=== PATIENT | male | born 1960 | race American Indian/Alaskan Native ===

== ENCOUNTER 2019-10-15 00:06 | Emergency (ER) | payer MEDICAID ==
[2019-10-15 00:36] VITALS: BP 212/81
[2019-10-15] MEDS ORDERED: ASPIRIN 325 MG TAB PO ONE (02:10)
--- NOTE | 2019-10-15 02:46 | XRay Report ---
CHEST 1 VIEW 10/15/2019 2:33 AM INDICATION / CLINICAL INFORMATION: Chest pain for 3 days. COMPARISON: One view of the chest from 08/17/2015. FINDINGS: SUPPORT DEVICES: None. HEART / MEDIASTINUM: The heart is similarly mildly enlarged with sternotomy changes. LUNGS / PLEURA: No significant pulmonary or pleural abnormality. No pneumothorax. ADDITIONAL FINDINGS: No significant additional findings. IMPRESSION: No acute abnormality of the chest. Signer Name: Julien Brown MD Signed: 10/15/2019 2:41 AM Workstation Name: [id number]
[2019-10-15 03:08] LABS: Basophils % (Auto) 0.5 % (0.0-1.8); Eosinophils # (Auto) 0.1 K/mm3 (0.0-0.4); Eosinophils % (Auto) 0.7 % (0.0-4.3); Hematocrit 44.7 % (35.5-45.6); Lymphocytes # (Auto) 2.1 K/mm3 (1.2-5.4); Lymphocytes % (Auto) 30.4 % (13.4-35.0); Mean Corpuscular HGB Conc 34 % (32-34); Mean Corpuscular Volume 86 fl (84-94); Monocytes # (Auto) 0.4 K/mm3 (0.0-0.8); Monocytes % (Auto) 5.6 % (0.0-7.3); Platelet Count 184 K/mm3 (140-440); Red Blood Count 5.17 M/mm3 (3.65-5.03); Red Cell Distribution Width 14.1 % (13.2-15.2)
[2019-10-15 03:30] LABS: BUN/Creatinine Ratio 9; Blood Urea Nitrogen 7 mg/dL (9-20); Calcium 9.2 mg/dL (8.4-10.2); Hemolysis Index 8
== END 2019-10-15 04:00 | disposition left against medical advice (07) ==
LOC: ED 00:06
DX: Z53.21 Procedure and treatment not carried out due to patient leaving prior to being seen by health care provider (principal)
CPT/HCPCS: 36415; 71045; 80048; 84484; 85025; 93005; 93010

== ENCOUNTER 2019-10-17 13:22 | Inpatient (IN) | payer MEDICAID ==
--- NOTE | 2019-10-17 13:46 | Emergency Department Report ---
Blank Doc - Documentation Documentation: 59-year-old male that presents with CP and SOB. This initial assessment/diagnostic orders/clinical plan/treatment(s) is/are subject to change based on patient's health status, clinical progression and re- assessment by fellow clinical providers in the ED. Further treatment and workup at subsequent clinical providers discretion. Patient/guardians urged not to elope from the ED as their condition may be serious if not clinically assessed and managed. Initial orders include: 1- Patient sent to MAIN ED for further evaluation and treatment 2- labs 3- EKG 4- CXR
[2019-10-17 14:24] LABS: Basophils % (Auto) 0.9 % (0.0-1.8); Eosinophils % (Auto) 0.8 % (0.0-4.3); Hematocrit 40.9 % (35.5-45.6); Hemoglobin 13.7 gm/dl (11.8-15.2); Lymphocytes # (Auto) 1.3 K/mm3 (1.2-5.4); Lymphocytes % (Auto) 34.2 % (13.4-35.0); Mean Corpuscular HGB Conc 34 % (32-34); Mean Corpuscular Volume 87 fl (84-94); Monocytes # (Auto) 0.2 K/mm3 (0.0-0.8); Monocytes % (Auto) 6.2 % (0.0-7.3); Platelet Count 156 K/mm3 (140-440); Red Blood Count 4.73 M/mm3 (3.65-5.03); Red Cell Distribution Width 14.3 % (13.2-15.2)
[2019-10-17 14:34] LABS: INR 1.05 (0.87-1.13); Partial Thromboplastin Time 30.2 Sec. (24.2-36.6)
--- NOTE | 2019-10-17 14:38 | XRay Report ---
CHEST 2 VIEWS INDICATION: Chest Pain. COMPARISON: 10/15/2019 FINDINGS: Support devices: None. Heart: Stable moderate cardiomegaly status post previous median sternotomy. Lungs/Pleura: No acute air space or interstitial disease. No significant pleural effusion. IMPRESSION: No acute findings. Signer Name: Sam Gayle MD Signed: 10/17/2019 2:33 PM Workstation Name: [id number]
[2019-10-17 14:46] LABS: Alanine Aminotransferase 20 units/L (7-56); Albumin 3.8 g/dL (3.9-5); BUN/Creatinine Ratio 13; Blood Urea Nitrogen 12 mg/dL (9-20); Calcium 8.5 mg/dL (8.4-10.2); Hemolysis Index 9
--- NOTE | 2019-10-17 17:04 | Emergency Department Report ---
<PEGGY LINCOLN - Last Filed: 10/17/19 17:31> ED General Adult HPI - General Chief complaint: Chest Pain Stated complaint: CHEST PAIN/RT ARM PAIN Time Seen by Provider: 10/17/19 13:45 Source: patient Mode of arrival: Ambulatory Limitations: No Limitations - History of Present Illness Initial comments: 59-year old -[place] male with a extensive history of coronary stent x6 replacement CABG, hypertension presents to the emergency room complaining of chest pain that radiates down his right arm. Patient states he has been out of his medications for 1 week. Patient also reports shortness of breath. When review of patient's medications it shows that patient has plenty of refills and patient was not aware that he had refills of his medications. Patient reports his primary care provider is at [facility]. Patient was able to walk from his room to the waiting area without any difficulties in breathing. Onset/Timin -: days(s) Location: chest - Related Data Home Medications Medication Instructions Recorded Confirmed Last Taken AtorvaSTATin [Lipitor] 80 mg PO QHS 10/17/19 10/17/19 Unknown ISOSORBIDE MONOnitrate [Imdur ER] 60 mg PO QDAY 10/17/19 10/17/19 Unknown Lisinopril [Zestril] 5 mg PO QDAY 10/17/19 10/17/19 Unknown Metformin HCl [metFORMIN ER 1,000 mg PO TID 10/17/19 10/17/19 Unknown Gastric] Metoprolol Xl [Metoprolol 25 mg PO QDAY 10/17/19 10/17/19 Unknown SUCCINATE ER TAB] Previous Rx's Medication Instructions Recorded Last Taken Type Aspirin EC 325 mg PO QDAY #30 tablet 08/17/15 Unknown Rx Clopidogrel [Plavix] 75 mg PO QDAY #30 tablet 08/17/15 Unknown Rx Allergies Allergy/AdvReac Type Severity Reaction Status Date / Time No Known Allergies Allergy Verified 08/17/15 00:27 ED Past Medical Hx - Past Medical History Previous Medical History?: Yes Hx Hypertension: Yes - Surgical History Past Surgical History?: Yes Hx Coronary Stent: Yes (x6) Hx Open Heart Surgery: Yes - Social History Smoking Status: Never Smoker Substance Use Type: None - Medications Home Medications: Home Medications Medication Instructions Recorded Confirmed Last Taken Type Aspirin EC 325 mg PO QDAY #30 tablet 08/17/15 10/17/19 Unknown Rx Clopidogrel [Plavix] 75 mg PO QDAY #30 tablet 08/17/15 10/17/19 Unknown Rx AtorvaSTATin [Lipitor] 80 mg PO QHS 10/17/19 10/17/19 Unknown History ISOSORBIDE MONOnitrate [Imdur ER] 60 mg PO QDAY 10/17/19 10/17/19 Unknown History Lisinopril [Zestril] 5 mg PO QDAY 10/17/19 10/17/19 Unknown History Metformin HCl [metFORMIN ER 1,000 mg PO TID 10/17/19 10/17/19 Unknown History Gastric] Metoprolol Xl [Metoprolol 25 mg PO QDAY 10/17/19 10/17/19 Unknown History SUCCINATE ER TAB] ED Physical Exam - General Limitations: No Limitations General appearance: alert, in no apparent distress - Head Head exam: Present: atraumatic, normocephalic - Eye Eye exam: Present: normal appearance - ENT ENT exam: Present: mucous membranes moist - Neck Neck exam: Present: normal inspection, full ROM - Respiratory Respiratory exam: Present: normal lung sounds bilaterally. Absent: respiratory distress - Cardiovascular Cardiovascular Exam: Present: regular rate, normal rhythm. Absent: systolic murmur, diastolic murmur, rubs, gallop - GI/Abdominal GI/Abdominal exam: Present: soft, normal bowel sounds - Extremities Exam Extremities exam: Present: normal inspection. Absent: pedal edema - Neurological Exam Neurological exam: Present: alert, oriented X3, normal gait - Psychiatric Psychiatric exam: Present: normal affect, normal mood - Skin Skin exam: Present: warm, dry, intact, normal color. Absent: rash ED Medical Decision Making - Lab Data Result diagrams: 10/17/19 13:58 10/17/19 13:58 - Medical Decision Making 59-year old -[place] male with a extensive history of coronary stent x6 replacement CABG, hypertension presents to the emergency room complaining of chest pain that radiates down his right arm. Patient states he has been out of his medications for 1 week. Patient also reports shortness of breath. When review of patient's medications it shows that patient has plenty of refills and patient was not aware that he had refills of his medications. Patient reports his primary care provider is at [facility]. Patient was able to walk from his room to the waiting area without any difficulties in breathing. Chest pain protocol has been initiated from triage. ED Disposition Clinical Impression: Unstable angina Disposition: DC-09 OP ADMIT IP TO THIS HOSP Condition: Stable Instructions: Angina (ED) Referrals: PRIMARY CARE, [Primary Care Provider] - 3-5 Days <TABATHARICK - Last Filed: 10/17/19 19:37> ED General Adult HPI - History of Present Illness Initial comments: Patient additionally adds that he has had worsening of his chest pain over the past week with shortness of breath with exertion. ED Review of Systems ROS: Stated complaint: CHEST PAIN/RT ARM PAIN Other details as noted in HPI Comment: All other systems reviewed and negative ED Course Vital Signs 10/17/19 10/17/19 10/17/19 13:48 19:19 19:26 Temperature 98.3 F 97.8 F Pulse Rate 67 68 Respiratory 18 17 16 Rate Blood Pressure 195/77 184/66 O2 Sat by Pulse 98 92 Oximetry ED Medical Decision Making - Lab Data Result diagrams: 10/17/19 13:58 10/17/19 13:58 Lab Results 10/17/19 10/17/19 10/17/19 Range/Units 13:58 13:58 13:58 WBC 3.9 L (4.5-11.0) K/mm3 RBC 4.73 (3.65-5.03) M/mm3 Hgb 13.7 (11.8-15.2) gm/dl Hct 40.9 (35.5-45.6) % MCV 87 (84-94) fl MCH 29 (28-32) pg MCHC 34 (32-34) % RDW 14.3 (13.2-15.2) % Plt Count 156 (140-440) K/mm3 Lymph % (Auto) 34.2 (13.4-35.0) % Ogle % (Auto) 6.2 (0.0-7.3) % Eos % (Auto) 0.8 (0.0-4.3) % Baso % (Auto) 0.9 (0.0-1.8) % Lymph # 1.3 (1.2-5.4) K/mm3 Ogle # 0.2 (0.0-0.8) K/mm3 Eos # 0.0 (0.0-0.4) K/mm3 Baso # 0.0 (0.0-0.1) K/mm3 Seg Neutrophils % 57.9 (40.0-70.0) % Seg Neutrophils # 2.3 (1.8-7.7) K/mm3 PT 13.8 (12.2-14.9) Sec. INR 1.05 (0.87-1.13) APTT 30.2 (24.2-36.6) Sec. Sodium 140 (137-145) mmol/L Potassium 3.9 (3.6-5.0) mmol/L Chloride 105.8 (98-107) mmol/L Carbon Dioxide 19 L (22-30) mmol/L Anion Gap 19 mmol/L BUN 12 (9-20) mg/dL Creatinine 0.9 (0.8-1.5) mg/dL Estimated GFR > 60 ml/min BUN/Creatinine Ratio 13 % Glucose 156 H (75-100) mg/dL Calcium 8.5 (8.4-10.2) mg/dL Total Bilirubin 0.40 (0.1-1.2) mg/dL AST 18 (5-40) units/L ALT 20 (7-56) units/L Alkaline Phosphatase 117 (35-129) units/L Troponin T 0.010 (0.00-0.029) ng/mL Total Protein 7.1 (6.3-8.2) g/dL Albumin 3.8 L (3.9-5) g/dL Albumin/Globulin Ratio 1.2 % 02/10/20 Range/Units 18:19 WBC (4.5-11.0) K/mm3 RBC (3.65-5.03) M/mm3 Hgb (11.8-15.2) gm/dl Hct (35.5-45.6) % MCV (84-94) fl MCH (28-32) pg MCHC (32-34) % RDW (13.2-15.2) % Plt Count (140-440) K/mm3 Lymph % (Auto) (13.4-35.0) % Ogle % (Auto) (0.0-7.3) % Eos % (Auto) (0.0-4.3) % Baso % (Auto) (0.0-1.8) % Lymph # (1.2-5.4) K/mm3 Ogle # (0.0-0.8) K/mm3 Eos # (0.0-0.4) K/mm3 Baso # (0.0-0.1) K/mm3 Seg Neutrophils % (40.0-70.0) % Seg Neutrophils # (1.8-7.7) K/mm3 PT (12.2-14.9) Sec. INR (0.87-1.13) APTT (24.2-36.6) Sec. Sodium (137-145) mmol/L Potassium (3.6-5.0) mmol/L Chloride (98-107) mmol/L Carbon Dioxide (22-30) mmol/L Anion Gap mmol/L BUN (9-20) mg/dL Creatinine (0.8-1.5) mg/dL Estimated GFR ml/min BUN/Creatinine Ratio % Glucose (75-100) mg/dL Calcium (8.4-10.2) mg/dL Total Bilirubin (0.1-1.2) mg/dL AST (5-40) units/L ALT (7-56) units/L Alkaline Phosphatase (35-129) units/L Troponin T 0.014 (0.00-0.029) ng/mL Total Protein (6.3-8.2) g/dL Albumin (3.9-5) g/dL Albumin/Globulin Ratio % - EKG Data -: EKG Interpreted by Vt - EKG Data 10/17/19 19:32 EKG shows sinus rhythm rate of 66 [place] is rightward intervals otherwise normal there are no ST segment elevations however there is [address] depression in leads I. There is lateral T wave inversions as well. 10/17/19 19:35 EKG appears to be unchanged from 2015 - Radiology Data Ordering Physician: MARY MANE NP Date of Service: 10/17/19 Procedure(s): XR chest routine 2V Accession Number(s): [id number] cc: MARY MANE NP Fluoro Time In Minutes: CHEST 2 VIEWS INDICATION: Chest Pain. COMPARISON: 10/15/2019 FINDINGS: Support devices: None. Heart: Stable moderate cardiomegaly status post previous median sternotomy. Lungs/Pleura: No acute air space or interstitial disease. No significant pleural effusion. IMPRESSION: No acute findings. Signer Name: Sam Gayle MD Signed: 10/17/2019 2:33 PM Workstation Name: [id number] Transcribed By: ES Dictated By: Sam Gayle MD Electronically Authenticated By: Sam Gayle MD Signed Date/Time: 10/17/19 1433 - Medical Decision Making At this time the patient is stating that he is having chest pain at rest. Patient states that he is very uncomfortable and has 8 out of 10 discomfort. Patient will be given aspirin and nitroglycerin. Patient also to be admitted to the hospitalist service for obvious to continue her cardiac risk stratification. Critical care attestation.: If time is entered above; I have spent that time in minutes in the direct care of this critically ill patient, excluding procedure time. ED Disposition Is pt being admited?: Yes Does the pt Need Aspirin: No Time of Disposition: 19:37 Heart Score - HEART Score History: Moderately suspicious EKG: Non-specific Age: 45-65 Risk factors: > 3 risk factors or hx of atherosclerotic disease Troponin: < normal limit HEART Score: 5
[2019-10-17] MEDS ORDERED: NITROGLYCERIN 0.4 MG TAB SUBL SL PRN (19:30)
[2019-10-17] MEDS ORDERED: ASPIRIN 325 MG TAB PO ONE (19:30)
[2019-10-17] MEDS ORDERED: HYDROcodone/ACETAMINOPHEN 5-325 MG TAB PO ONE (19:30)
[2019-10-17] MEDS ORDERED: ONDANSETRON 4 MG/2 ML INJ IV PRN (23:31)
[2019-10-17] MEDS ORDERED: ACETAMINOPHEN 325 MG TAB PO PRN (23:31)
--- NOTE | 2019-10-17 23:31 | History and Physical Report ---
History of Present Illness Date of admission: 10/17/19 19:38 History of present illness: 59-year-old man with a history of hypertension, diabetes, coronary artery disease comes emergency room with complaints of chest pain. Patient states that his symptoms started 5 days ago, pain is in the epigastric area and he feels as if someone is stepping on his chest, constant, intensity 5/10, no radiation but complains of right arm pain. He states that he ran out of his nitroglycerin, did not take any. Denies nausea vomiting, shortness of breath, diaphoresis and palpitation. He states he had a stress test done at [facility] last year. Patient is being admitted for chest pain Review Of Systems: Constitutional: no weight loss, fever, chills Ears, eyes, nose, mouth and throat: no nasal congestion, no nasal discharge, no sinus pressure, blurry vision, diplopia Neck: No neck pain or rigidity. Cardiovascular: No palpitations Respiratory: No shortness of breath, cough Gastrointestinal: No hematochezia Genitourinary : no dysuria, frequency Musculoskeletal: no muscle ache , joint pain Integumentary: no rash, no pruritis Neurological: no parathesias, focal weakness Endocrine: no cold or heat intolerance, no polyuria or polydipsia Hematologic/Lymphatic: no easy bruising, no easy bleeding, no gland swelling Allergic/Immunologic: no urticaria, no angioedema. PAST MEDICAL HISTORY: hypertension, diabetes, coronary artery disease PAST SURGICAL HISTORY: CABG SOCIAL HISTORY: Denies alcohol, tobacco, drugs FAMILY HISTORY: Hypertension Medications and Allergies Allergies Allergy/AdvReac Type Severity Reaction Status Date / Time No Known Allergies Allergy Verified 08/17/15 00:27 Home Medications Medication Instructions Recorded Confirmed Last Taken Type Aspirin EC 325 mg PO QDAY #30 tablet 08/17/15 10/17/19 Unknown Rx Clopidogrel [Plavix] 75 mg PO QDAY #30 tablet 08/17/15 10/17/19 Unknown Rx AtorvaSTATin [Lipitor] 80 mg PO QHS 10/17/19 10/17/19 Unknown History ISOSORBIDE MONOnitrate [Imdur ER] 60 mg PO QDAY 10/17/19 10/17/19 Unknown History Lisinopril [Zestril] 5 mg PO QDAY 10/17/19 10/17/19 Unknown History Metformin HCl [metFORMIN ER 1,000 mg PO TID 10/17/19 10/17/19 Unknown History Gastric] Metoprolol Xl [Metoprolol 25 mg PO QDAY 10/17/19 10/17/19 Unknown History SUCCINATE ER TAB] Active Meds: Active Medications Morphine Sulfate (Morphine) 2 mg IV Q4H PRN PRN Reason: Pain, Moderate (4-6) Nitroglycerin (Nitrostat) 0.4 mg SL .Q5MIN PRN PRN Reason: Chest Pain Exam - Physical Exam Narrative exam: Gen. appearance: Patient lying in bed, no apparent distress HEENT: Normocephalic, atraumatic, pupils equally round and reactive to light, extraocular movement intact, and no sclericterus,. No JVD or thyromegaly or nodule,neck supple, no carotid bruit ,mucous membranes moist, no exudate or erythema Heart: S1, S2, regular rate and rhythm Lungs: Clear bilaterally, breathing comfortable Abdomen: Positive bowel sounds, nontender, nondistended, no organomegaly Extremity: no edema, cyanosis, clubbing Skin: No rash, nodules, warm, dry Neuro: speech is fluent, cranial nerves II to XII intact, motor, sensory intact - Constitutional Vitals: Temp Pulse Resp BP Pulse Ox 97.8 F 68 20 184/66 92 10/17/19 19:19 10/17/19 19:19 10/17/19 20:58 10/17/19 19:19 10/17/19 19:19 Results - Labs CBC & Chem 7: 10/18/19 03:48 10/18/19 03:48 Labs: Abnormal lab results 10/17/19 10/17/19 Range/Units 13:58 13:58 WBC 3.9 L (4.5-11.0) K/mm3 Carbon Dioxide 19 L (22-30) mmol/L Glucose 156 H (75-100) mg/dL Albumin 3.8 L (3.9-5) g/dL - Imaging and Cardiology EKG: image reviewed Chest x-ray: report reviewed Assessment and Plan Assessment Chest pain/Coronary artery disease Check cardiac enzymes, consult cardiology Patient had a recent stress test done 1 year ago Start aspirin,plavix, IV morphine, outpatient cardiac medications Diabetes Check fingersticks and start insulin sliding scale Hypertension add IV hydralazine, uncontrolled table continue outpatient medications DVT prophylaxis
[2019-10-18 00:44] LABS: Creatine Kinase MB 5.6 ng/mL (0.0-4.0)
[2019-10-18] MEDS: MORPHINE 2 MG/1 ML INJ IV PRN ×4 (02:01→21:50)
[2019-10-18 04:58] LABS: Basophils % (Auto) 0.5 % (0.0-1.8); Eosinophils # (Auto) 0.1 K/mm3 (0.0-0.4); Eosinophils % (Auto) 1.5 % (0.0-4.3); Hematocrit 39.4 % (35.5-45.6); Hemoglobin 13.4 gm/dl (11.8-15.2); Lymphocytes # (Auto) 2.3 K/mm3 (1.2-5.4); Lymphocytes % (Auto) 47.6 % (13.4-35.0); Mean Corpuscular HGB Conc 34 % (32-34); Mean Corpuscular Volume 85 fl (84-94); Monocytes # (Auto) 0.3 K/mm3 (0.0-0.8); Monocytes % (Auto) 6.6 % (0.0-7.3); Platelet Count 158 K/mm3 (140-440); Red Blood Count 4.62 M/mm3 (3.65-5.03); Red Cell Distribution Width 14.3 % (13.2-15.2)
[2019-10-18 05:20] LABS: BUN/Creatinine Ratio 15; Blood Urea Nitrogen 12 mg/dL (9-20); Calcium 8.4 mg/dL (8.4-10.2); Hemolysis Index 6
[2019-10-18 05:23] LABS: Creatine Kinase MB 5.2 ng/mL (0.0-4.0)
[2019-10-18] MEDS: ASPIRIN EC 325 MG TAB PO SCH (10:18)
[2019-10-18] MEDS: LISINOPRIL 5 MG TAB PO SCH (10:18)
[2019-10-18] MEDS: CLOPIDOGREL 75 MG TAB PO SCH (10:18)
[2019-10-18] MEDS: METOPROLOL SUCCINATE XL 25 MG TAB PO SCH (10:19)
--- NOTE | 2019-10-18 11:12 | Consultation ---
History of Present Illness Consult date: 10/18/19 Consult reason: chest pain History of present illness: This is a 59-year old male with a history of coronary artery disease with remote 3 vessel bypass grafting. Patient reports his latest cardiac workup was done at [facility] less than six months ago. Records are not available for review. Patient presented with complaints of chest pain, intermittent for several days. Noted a systolic blood pressure greater than 190 on presentation. Admits he ran out of his medications a week ago. He denies unusual shortness of breath, palpitations and dizziness. There was no syncope. Chest x-ray is negative. Cycled cardiac enzymes are normal and his ECG is sinus rhythm with non-specific Twave abnormalities. No significant change when compared to prior. A cardiac consultation has been requested for further evaluation. Medications and Allergies Allergies Allergy/AdvReac Type Severity Reaction Status Date / Time No Known Allergies Allergy Verified 08/17/15 00:27 Home Medications Medication Instructions Recorded Confirmed Last Taken Type Aspirin EC 325 mg PO QDAY #30 tablet 08/17/15 10/17/19 Unknown Rx Clopidogrel [Plavix] 75 mg PO QDAY #30 tablet 08/17/15 10/17/19 Unknown Rx AtorvaSTATin [Lipitor] 80 mg PO QHS 10/17/19 10/17/19 Unknown History ISOSORBIDE MONOnitrate [Imdur ER] 60 mg PO QDAY 10/17/19 10/17/19 Unknown History Lisinopril [Zestril] 5 mg PO QDAY 10/17/19 10/17/19 Unknown History Metformin HCl [metFORMIN ER 1,000 mg PO TID 10/17/19 10/17/19 Unknown History Gastric] Metoprolol Xl [Metoprolol 25 mg PO QDAY 10/17/19 10/17/19 Unknown History SUCCINATE ER TAB] Active Meds: Active Medications Acetaminophen (Tylenol) 650 mg PO Q4H PRN PRN Reason: Pain MILD(1-3)/Fever >100.5/[place] Aspirin (Ecotrin) 325 mg PO QDAY [facility] Last Admin: 10/18/19 10:18 Dose: 325 mg Documented by: Atorvastatin Calcium (Lipitor) 80 mg PO QHS [facility] Clopidogrel Bisulfate (Plavix) 75 mg PO QDAY [facility] Last Admin: 10/18/19 10:18 Dose: 75 mg Documented by: Hydralazine HCl (Apresoline) 5 mg IV Q6H PRN PRN Reason: Hypertension Lisinopril (Zestril) 5 mg PO QDAY [facility] Last Admin: 10/18/19 10:18 Dose: 5 mg Documented by: Metoprolol Succinate (Metoprolol Xl) 25 mg PO QDAY [facility] Last Admin: 10/18/19 10:19 Dose: Not Given Documented by: Morphine Sulfate (Morphine) 2 mg IV Q4H PRN PRN Reason: Pain, Moderate (4-6) Last Admin: 10/18/19 08:02 Dose: 2 mg Documented by: Nitroglycerin (Nitrostat) 0.4 mg SL .Q5MIN PRN PRN Reason: Chest Pain Ondansetron HCl (Zofran) 4 mg IV Q8H PRN PRN Reason: Nausea And Vomiting Sodium Chloride (Sodium Chloride Flush Syringe 10 Ml) 10 ml IV BID [facility] Last Admin: 10/18/19 10:18 Dose: 10 ml Documented by: Sodium Chloride (Sodium Chloride Flush Syringe 10 Ml) 10 ml IV PRN PRN PRN Reason: LINE FLUSH Last Admin: 10/18/19 02:05 Dose: 10 ml Documented by: Physical Examination Vital Signs Temp Pulse Resp BP Pulse Ox 98.3 F 67 18 195/77 98 10/17/19 13:48 10/17/19 13:48 10/17/19 13:48 10/17/19 13:48 10/17/19 13:48 General appearance: no acute distress HEENT: Positive: PERRL Neck: Positive: trachea midline Cardiac: Positive: Reg Rate and Rhythm Lungs: Positive: Decreased Breath Sounds Neuro: Positive: Grossly Intact Results 10/18/19 03:48 10/18/19 03:48 Cardiac Enzymes 10/17/19 10/17/19 10/18/19 Range/Units 13:58 23:47 03:48 AST 18 (5-40) units/L CK-MB (CK-2) 5.6 H 5.2 H (0.0-4.0) ng/mL Coagulation 10/17/19 Range/Units 13:58 PT 13.8 (12.2-14.9) Sec. INR 1.05 (0.87-1.13) APTT 30.2 (24.2-36.6) Sec. CBC 10/17/19 10/18/19 Range/Units 13:58 03:48 WBC 3.9 L 4.8 (4.5-11.0) K/mm3 RBC 4.73 4.62 (3.65-5.03) M/mm3 Hgb 13.7 13.4 (11.8-15.2) gm/dl Hct 40.9 39.4 (35.5-45.6) % Plt Count 156 158 (140-440) K/mm3 Lymph # 1.3 2.3 (1.2-5.4) K/mm3 [place] # 0.2 0.3 (0.0-0.8) K/mm3 Eos # 0.0 0.1 (0.0-0.4) K/mm3 Baso # 0.0 0.0 (0.0-0.1) K/mm3 Comprehensive Metabolic Panel 10/17/19 10/18/19 Range/Units 13:58 03:48 Sodium 140 142 (137-145) mmol/L Potassium 3.9 3.5 L (3.6-5.0) mmol/L Chloride 105.8 105.6 (98-107) mmol/L Carbon Dioxide 19 L 24 (22-30) mmol/L BUN 12 12 (9-20) mg/dL Creatinine 0.9 0.8 (0.8-1.5) mg/dL Glucose 156 H 197 H (75-100) mg/dL Calcium 8.5 8.4 (8.4-10.2) mg/dL AST 18 (5-40) units/L ALT 20 (7-56) units/L Alkaline Phosphatase 117 (35-129) units/L Total Protein 7.1 (6.3-8.2) g/dL Albumin 3.8 L (3.9-5) g/dL Assessment and Plan Chest pain Hx of CAD with 3 vessel CABG in 2011 follows with [place] Hypertension Diabetes Noncompliant with medications Obtain prior cardiac records and recent cardiac workup for review.
--- NOTE | 2019-10-18 16:07 | Progress Note ---
Assessment and Plan Assessment and plan: Patient is a 59 yo man with a history of CAD s/p CABG, hypertension and type 2 DM who presents with chest pains Left sided Chest pains, recurrent, treat with IV morphine this afternoon: Cardiology following, they waiting to get old records to proceed Check cardiac enzymes, consulted cardiology Patient had a recent stress test done 1 year ago Start aspirin,plavix, IV morphine, outpatient cardiac medications Diabetes mellitus type 2 Check fingersticks and start insulin sliding scale Malignant Hypertension add IV hydralazine, uncontrolled table continue outpatient medications DVT prophylaxis added sq heparin Bradycardia during sleep, suspect SHAKILA Hypokalemia replete and recheck Disposition: continue inpatient care, still having chest pains and he says it feels like his heart attack History Interval history: Patient was seen and examined. Follow-up on current diagnosis of chest pains. Overnight uneventful as no events directly reported to me. Patient denies any shortness breath, nausea/vomiting or severe headaches. Imaging, nursing note, chart, labs and old chart reviewed. Discussed with patient. Hospitalist Physical - Physical exam Narrative exam: Gen: WDWN, NAD, Awake, Alert, Orientated x 3 HEENT: NCAT, EOMI, PERRL, OP Clear Neck: supple, no adenopathy, no thyromegaly, no JVD CVS/Heart: RRR, normal S1S2, pulses present bilaterally Chest/Lungs: CTA B, Symmetrical chest expansion, good air entry bilaterally, reproducible substernal/LLL chest wall tenderness GI/Abdomen: soft, NTND, good bowel sounds, no guarding or rebound /Bladder: no suprapubic tenderness, no CVA or paraspinal tenderness Extermity/Skin: no c/c/e, no obvious rash MSK: FROM x 4 Neuro: CN 2-12 grossly intact, no new focal deficits Psych: calm - Constitutional Vitals: Temp Pulse Resp BP Pulse Ox 98.2 F 63 18 167/69 93 10/18/19 11:44 10/18/19 11:44 10/18/19 11:44 10/18/19 11:44 10/18/19 11:44 General appearance: Present: no acute distress Results - Labs CBC & Chem 7: 10/18/19 03:48 10/18/19 03:48 Labs: Laboratory Last Values WBC 4.8 K/mm3 (4.5-11.0) 10/18/19 03:48 RBC 4.62 M/mm3 (3.65-5.03) 10/18/19 03:48 Hgb 13.4 gm/dl (11.8-15.2) 10/18/19 03:48 Hct 39.4 % (35.5-45.6) 10/18/19 03:48 MCV 85 fl (84-94) 10/18/19 03:48 MCH 29 pg (28-32) 10/18/19 03:48 MCHC 34 % (32-34) 10/18/19 03:48 RDW 14.3 % (13.2-15.2) 10/18/19 03:48 Plt Count 158 K/mm3 (140-440) 10/18/19 03:48 Lymph % (Auto) 47.6 % (13.4-35.0) H 10/18/19 03:48 [place] % (Auto) 6.6 % (0.0-7.3) 10/18/19 03:48 Eos % (Auto) 1.5 % (0.0-4.3) 10/18/19 03:48 Baso % (Auto) 0.5 % (0.0-1.8) 10/18/19 03:48 Lymph # 2.3 K/mm3 (1.2-5.4) 10/18/19 03:48 [place] # 0.3 K/mm3 (0.0-0.8) 10/18/19 03:48 Eos # 0.1 K/mm3 (0.0-0.4) 10/18/19 03:48 Baso # 0.0 K/mm3 (0.0-0.1) 10/18/19 03:48 Seg Neutrophils % 43.8 % (40.0-70.0) 10/18/19 03:48 Seg Neutrophils # 2.1 K/mm3 (1.8-7.7) 10/18/19 03:48 PT 13.8 Sec. (12.2-14.9) 10/17/19 13:58 INR 1.05 (0.87-1.13) 10/17/19 13:58 APTT 30.2 Sec. (24.2-36.6) 10/17/19 13:58 Sodium 142 mmol/L (137-145) 10/18/19 03:48 Potassium 3.5 mmol/L (3.6-5.0) L 10/18/19 03:48 Chloride 105.6 mmol/L (98-107) 10/18/19 03:48 Carbon Dioxide 24 mmol/L (22-30) 10/18/19 03:48 Anion Gap 16 mmol/L 10/18/19 03:48 BUN 12 mg/dL (9-20) 10/18/19 03:48 Creatinine 0.8 mg/dL (0.8-1.5) 10/18/19 03:48 Estimated GFR > 60 ml/min 10/18/19 03:48 BUN/Creatinine Ratio 15 % 10/18/19 03:48 Glucose 197 mg/dL (75-100) H 10/18/19 03:48 Calcium 8.4 mg/dL (8.4-10.2) 10/18/19 03:48 Total Bilirubin 0.40 mg/dL (0.1-1.2) 10/17/19 13:58 AST 18 units/L (5-40) 10/17/19 13:58 ALT 20 units/L (7-56) 10/17/19 13:58 Alkaline Phosphatase 117 units/L (35-129) 10/17/19 13:58 Total Creatine Kinase 262 units/L (55-170) H 10/18/19 03:48 CK-MB (CK-2) 5.2 ng/mL (0.0-4.0) H 10/18/19 03:48 CK-MB (CK-2) Rel Index 1.9 (0-4) 10/18/19 03:48 Troponin T 0.020 ng/mL (0.00-0.029) 10/18/19 03:48 Total Protein 7.1 g/dL (6.3-8.2) 10/17/19 13:58 Albumin 3.8 g/dL (3.9-5) L 10/17/19 13:58 Albumin/Globulin Ratio 1.2 % 10/17/19 13:58 Active Medications - Current Medications Current Medications: Generic Name Dose Route Start Last Admin Trade Name Freq PRN Reason Stop Dose Admin Acetaminophen 650 mg 10/17/19 23:31 Tylenol PO Q4H PRN Pain MILD(1-3)/Fever >100.5/DAVIDSON Aspirin 325 mg 10/18/19 10:00 10/18/19 10:18 Ecotrin PO 325 mg QDAY REYNALDO Administration Atorvastatin Calcium 80 mg 10/18/19 22:00 Lipitor PO QHS REYNALDO Clopidogrel Bisulfate 75 mg 10/18/19 10:00 10/18/19 10:18 Plavix PO 75 mg QDAY REYNALDO Administration Hydralazine HCl 5 mg 10/17/19 23:38 Apresoline IV Q6H PRN Hypertension Lisinopril 5 mg 10/18/19 10:00 10/18/19 10:18 Zestril PO 5 mg QDAY REYNALDO Administration Metoprolol Succinate 25 mg 10/18/19 10:00 10/18/19 10:19 Metoprolol Xl PO Not Given QDAY [facility] Morphine Sulfate 2 mg 10/17/19 22:40 10/18/19 13:54 Morphine IV 2 mg Q4H PRN Administration Pain, Moderate (4-6) Nitroglycerin 0.4 mg 10/17/19 19:30 Nitrostat SL .Q5MIN PRN Chest Pain Ondansetron HCl 4 mg 10/17/19 23:31 Zofran IV Q8H PRN Nausea And Vomiting Sodium Chloride 10 ml 10/18/19 10:00 10/18/19 10:18 Sodium Chloride Flush Syringe 10 Ml IV 10 ml BID REYNALDO Administration Sodium Chloride 10 ml 10/17/19 23:31 10/18/19 02:05 Sodium Chloride Flush Syringe 10 Ml IV 10 ml PRN PRN Administration LINE FLUSH
[2019-10-18] MEDS ORDERED: POTASSIUM CHLORIDE ER 20 MEQ TAB PO ONE (17:06)
[2019-10-18] MEDS: hydrALAZINE 20 MG/1 ML INJ IV PRN (17:34)
[2019-10-19] MEDS: LISINOPRIL 5 MG TAB PO SCH (09:22)
[2019-10-19] MEDS: ASPIRIN EC 325 MG TAB PO SCH (09:22)
[2019-10-19] MEDS: CLOPIDOGREL 75 MG TAB PO SCH (09:22)
[2019-10-19] MEDS: METOPROLOL SUCCINATE XL 25 MG TAB PO SCH (09:24)
[2019-10-19] MEDS: MORPHINE 2 MG/1 ML INJ IV PRN ×2 (09:30→22:08)
--- NOTE | 2019-10-19 11:32 | Progress Note ---
Assessment and Plan Chest pain Hx of multivessel CAD with 3 vessel CABG C 08/2019 at [place] s/p POBA of LCx. patent proximal LAD and OM-1 stent. patent AMARO graft to diagonal occluded SVG to RCA occluded SVG to OM-2 EF 45-50% by echocardiogram Hypertension Diabetes Noncompliant with medications Recommend: Medical therapy for multivessel coronary artery disease including DAPT, beta blockers and statin therapy. In addition, we will add nitrates and Ranexa 500 mg twice a day. Subjective Date of service: 10/19/19 Interval history: Patient reports chest pain is less today. Records received from [place] and reviewed. Objective Vital Signs Temp Pulse Resp Resp BP Pulse Ox 10/19/19 09:35 98.2 F 18 178/78 10/19/19 09:24 58 L 10/19/19 09:22 58 L 10/19/19 08:00 98 10/19/19 04:53 98.4 F 62 16 170/65 98 10/19/19 00:14 97.7 F 72 16 177/71 96 10/18/19 21:50 20 10/18/19 20:25 72 0 L 10/18/19 20:18 99.3 F 72 20 164/73 91 10/18/19 18:36 98.4 F 59 L 18 161/56 100 10/18/19 17:34 58 L 180/70 10/18/19 17:00 54 L 10/18/19 12:00 70 10/18/19 11:44 98.2 F 63 18 167/69 93 - Physical Examination General: No Apparent Distress HEENT: Positive: PERRL Neck: Positive: trachea midline Cardiac: Positive: Reg Rate and Rhythm Lungs: Positive: Decreased Breath Sounds Neuro: Positive: Grossly Intact
--- NOTE | 2019-10-19 16:21 | Progress Note ---
Assessment and Plan Assessment and plan: Patient is a 59 yo man with a history of CAD s/p CABG, hypertension and type 2 DM who presents with chest pains Left sided Chest pains, recurrent, treat with IV morphine this afternoon: Cardiology following, they waiting to get old records to proceed Check cardiac enzymes, consulted cardiology Patient had a recent stress test done 1 year ago Start aspirin,plavix, IV morphine, outpatient cardiac medications Diabetes mellitus type 2 Check fingersticks and start insulin sliding scale Malignant Hypertension add IV hydralazine, uncontrolled table continue outpatient medications DVT prophylaxis added sq heparin Bradycardia during sleep, suspect SHAKILA Hypokalemia replete and recheck Disposition: continue inpatient care, still having chest pains, once cp free then discharge, Cardiology has added Ranexa. per Cardiology: "The patient's cardiac catheterization report from a month ago at [facility] reports as follows: 1. Mild nonobstructive left main disease, feeding and LAD system with a patent stent. 2. Patent left internal mammary artery graft to the diagonal branch of the LAD. 3. Occluded saphenous vein grafts 2 to the circumflex and right coronary arteries. 4. In-stent restenosis of the circumflex was treated with successful balloon angioplasty. No additional stents were deployed. 5. The right coronary artery was chronically, totally occluded and recommended for medical therapy. 6. Left ventricle ejection fraction 45-50%. Based on the above detailed anatomy, we'll recommend medical therapy for small vessel disease and chronic stable angina pectoris. We'll add long-acting nitrates and Ranexa to his current regimen. Aggressive risk factor modification is also recommended. The patient's doctors at [facility] recommended a PCS K9 inhibitor for cholesterol management." History Interval history: Patient was seen and examined. Follow-up on current diagnosis of chest pains. Overnight uneventful as no events directly reported to me. Patient denies any shortness breath, nausea/vomiting or severe headaches. Imaging, nursing note, chart, labs and old chart reviewed. Discussed with patient. Hospitalist Physical - Physical exam Narrative exam: Gen: WDWN, NAD, Awake, Alert, Orientated x 3 HEENT: NCAT, EOMI, PERRL, OP Clear Neck: supple, no adenopathy, no thyromegaly, no JVD CVS/Heart: RRR, normal S1S2, pulses present bilaterally Chest/Lungs: CTA B, Symmetrical chest expansion, good air entry bilaterally, reproducible substernal/LLL chest wall tenderness GI/Abdomen: soft, NTND, good bowel sounds, no guarding or rebound /Bladder: no suprapubic tenderness, no CVA or paraspinal tenderness Extermity/Skin: no c/c/e, no obvious rash MSK: FROM x 4 Neuro: CN 2-12 grossly intact, no new focal deficits Psych: calm - Constitutional Vitals: Temp Pulse Resp BP Pulse Ox 98.2 F 58 L 18 178/78 98 10/19/19 09:35 10/19/19 09:24 10/19/19 09:35 10/19/19 09:35 10/19/19 08:00 General appearance: Present: no acute distress Results - Labs CBC & Chem 7: 10/18/19 03:48 10/18/19 03:48 Labs: Laboratory Last Values WBC 4.8 K/mm3 (4.5-11.0) 10/18/19 03:48 RBC 4.62 M/mm3 (3.65-5.03) 10/18/19 03:48 Hgb 13.4 gm/dl (11.8-15.2) 10/18/19 03:48 Hct 39.4 % (35.5-45.6) 10/18/19 03:48 MCV 85 fl (84-94) 10/18/19 03:48 MCH 29 pg (28-32) 10/18/19 03:48 MCHC 34 % (32-34) 10/18/19 03:48 RDW 14.3 % (13.2-15.2) 10/18/19 03:48 Plt Count 158 K/mm3 (140-440) 10/18/19 03:48 Lymph % (Auto) 47.6 % (13.4-35.0) H 10/18/19 03:48 [place] % (Auto) 6.6 % (0.0-7.3) 10/18/19 03:48 Eos % (Auto) 1.5 % (0.0-4.3) 10/18/19 03:48 Baso % (Auto) 0.5 % (0.0-1.8) 10/18/19 03:48 Lymph # 2.3 K/mm3 (1.2-5.4) 10/18/19 03:48 [place] # 0.3 K/mm3 (0.0-0.8) 10/18/19 03:48 Eos # 0.1 K/mm3 (0.0-0.4) 10/18/19 03:48 Baso # 0.0 K/mm3 (0.0-0.1) 10/18/19 03:48 Seg Neutrophils % 43.8 % (40.0-70.0) 10/18/19 03:48 Seg Neutrophils # 2.1 K/mm3 (1.8-7.7) 10/18/19 03:48 PT 13.8 Sec. (12.2-14.9) 10/17/19 13:58 INR 1.05 (0.87-1.13) 10/17/19 13:58 APTT 30.2 Sec. (24.2-36.6) 10/17/19 13:58 Sodium 142 mmol/L (137-145) 10/18/19 03:48 Potassium 3.5 mmol/L (3.6-5.0) L 10/18/19 03:48 Chloride 105.6 mmol/L (98-107) 10/18/19 03:48 Carbon Dioxide 24 mmol/L (22-30) 10/18/19 03:48 Anion Gap 16 mmol/L 10/18/19 03:48 BUN 12 mg/dL (9-20) 10/18/19 03:48 Creatinine 0.8 mg/dL (0.8-1.5) 10/18/19 03:48 Estimated GFR > 60 ml/min 10/18/19 03:48 BUN/Creatinine Ratio 15 % 10/18/19 03:48 Glucose 197 mg/dL (75-100) H 10/18/19 03:48 Calcium 8.4 mg/dL (8.4-10.2) 10/18/19 03:48 Total Bilirubin 0.40 mg/dL (0.1-1.2) 10/17/19 13:58 AST 18 units/L (5-40) 10/17/19 13:58 ALT 20 units/L (7-56) 10/17/19 13:58 Alkaline Phosphatase 117 units/L (35-129) 10/17/19 13:58 Total Creatine Kinase 262 units/L (55-170) H 10/18/19 03:48 CK-MB (CK-2) 5.2 ng/mL (0.0-4.0) H 10/18/19 03:48 CK-MB (CK-2) Rel Index 1.9 (0-4) 10/18/19 03:48 Troponin T 0.020 ng/mL (0.00-0.029) 10/18/19 03:48 Total Protein 7.1 g/dL (6.3-8.2) 10/17/19 13:58 Albumin 3.8 g/dL (3.9-5) L 10/17/19 13:58 Albumin/Globulin Ratio 1.2 % 10/17/19 13:58 Active Medications - Current Medications Current Medications: Generic Name Dose Route Start Last Admin Trade Name Freq PRN Reason Stop Dose Admin Acetaminophen 650 mg 10/17/19 23:31 Tylenol PO Q4H PRN Pain MILD(1-3)/Fever >100.5/DAVIDSON Aspirin 325 mg 10/18/19 10:00 10/19/19 09:22 Ecotrin PO [address] [facility] Administration Atorvastatin Calcium 80 mg 10/18/19 22:00 10/18/19 21:49 Lipitor PO 80 mg QHS REYNALDO Administration Clopidogrel Bisulfate 75 mg 10/18/19 10:00 10/19/19 09:22 Plavix PO [address] [facility] Administration Heparin Sodium (Porcine) 5,000 unit 10/19/19 22:00 Heparin SUB-Q Q12HR [facility] Hydralazine HCl 5 mg 10/17/19 23:38 10/18/19 17:34 Apresoline IV 5 mg Q6H PRN Administration Hypertension Isosorbide Mononitrate 30 mg 10/19/19 12:00 Imdur PO QDAY REYNALDO Lisinopril 5 mg 10/18/19 10:00 10/19/19 09:22 Zestril PO [address] [facility] Administration Metoprolol Succinate 25 mg 10/18/19 10:00 10/19/19 09:24 Metoprolol Xl PO Not Given QDAY [facility] Morphine Sulfate 2 mg 10/17/19 22:40 10/19/19 09:30 Morphine IV 2 mg Q4H PRN Administration Pain, Moderate (4-6) Nitroglycerin 0.4 mg 10/17/19 19:30 Nitrostat SL .Q5MIN PRN Chest Pain Ondansetron HCl 4 mg 10/17/19 23:31 Zofran IV Q8H PRN Nausea And Vomiting Ranolazine 500 mg 10/19/19 12:00 Ranexa Er PO BID REYNALDO Sodium Chloride 10 ml 10/18/19 10:00 10/19/19 09:25 Sodium Chloride Flush Syringe 10 Ml IV 10 ml BID REYNALDO Administration Sodium Chloride 10 ml 10/17/19 23:31 10/18/19 02:05 Sodium Chloride Flush Syringe 10 Ml IV 10 ml PRN PRN Administration LINE FLUSH
[2019-10-19] MEDS: RANOLAZINE ER 500 MG TAB 12HR PO SCH ×2 (18:12→21:59)
[2019-10-19] MEDS: HEPARIN 5,000 UNIT/1 ML VIAL SUB-Q SCH (21:59)
--- NOTE | 2019-10-20 10:49 | Progress Note ---
Assessment and Plan Chronic stable angina Hx of multivessel CAD with 3 vessel CABG (pt follows with [facility]) [facility] 08/2019 at [place] 1. Mild nonobstructive left main disease, feeding and LAD system with a patent stent. 2. Patent left internal mammary artery graft to the diagonal branch of the LAD. 3. Occluded saphenous vein grafts 2 to the circumflex and right coronary arteries. 4. In-stent restenosis of the circumflex was treated with successful balloon angioplasty. No additional stents were deployed. 5. The right coronary artery was chronically, totally occluded and recommended for medical therapy. 6. Left ventricle ejection fraction 45-50%. Hypertension Diabetes Noncompliant with medications Recommend: Medical therapy for coronary artery disease small vessel disease and chronic stable angina pectoris including DAPT, beta blockers,statin therapy, nitrates and Ranexa 500 mg twice a day. Stable cardiac bautista. 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 Subjective Date of service: 10/20/19 Interval history: Patient is resting in bed comfortably. He denies chest pain. Objective Vital Signs Temp Pulse Resp BP Pulse Ox 10/20/19 09:11 94 10/20/19 08:03 98.1 F 61 18 140/54 99 10/20/19 04:35 65 10/20/19 04:23 98.8 F 64 16 145/70 97 10/20/19 00:31 99.4 F 62 16 159/70 93 10/19/19 20:15 99.3 F 65 20 136/61 92 10/19/19 20:04 72 10/19/19 18:05 98.2 F 18 191/87 10/19/19 14:00 65 10/19/19 13:26 98.2 F 18 181/67 - Physical Examination General: No Apparent Distress HEENT: Positive: PERRL Neck: Positive: trachea midline Cardiac: Positive: Reg Rate and Rhythm Lungs: Positive: Decreased Breath Sounds Neuro: Positive: Grossly Intact
[2019-10-20] MEDS: MORPHINE 2 MG/1 ML INJ IV PRN ×2 (16:25→20:46)
--- NOTE | 2019-10-20 18:20 | Progress Note ---
Assessment and Plan Left sided Chest pains, recurrent, treat with IV morphine this afternoon: Cardiology following, they waiting to get old records to proceed Check cardiac enzymes, consulted cardiology Patient had a recent stress test done 1 year ago Start aspirin,plavix, IV morphine, outpatient cardiac medications Diabetes mellitus type 2 Check fingersticks and start insulin sliding scale Malignant Hypertension add IV hydralazine, uncontrolled table continue outpatient medications DVT prophylaxis added sq heparin Bradycardia during sleep, suspect SHAKILA Hypokalemia replete and recheck Disposition: Refused to go home.D/c in AM Subjective Date of service: 10/20/19 Principal diagnosis: Chest pain Interval history: Patient is a 59 yo man with a history of CAD s/p CABG, hypertension and type 2 DM who presents with chest pains Objective - Constitutional Vitals: Vital Signs - 12hr 10/20/19 10/20/19 10/20/19 08:03 09:11 10:00 Temperature 98.1 F Pulse Rate 61 Respiratory 18 Rate Respiratory 0 L Rate [C/P] Blood Pressure 140/54 O2 Sat by Pulse 99 94 Oximetry General appearance: Present: no acute distress, well-nourished - EENT Eyes: PERRL, EOM intact ENT: hearing intact, clear oral mucosa Ears: bilateral: normal - Neck Neck: supple, normal ROM - Respiratory Respiratory effort: normal Respiratory: bilateral: CTA - Breasts Breasts: normal - Cardiovascular Heart rate: 78 Rhythm: regular Heart Sounds: Present: S1 & S2. Absent: gallop, rub Extremities: pulses intact, No edema, normal color, Full ROM - Gastrointestinal General gastrointestinal: Present: soft, non-tender, non-distended, normal bowel sounds - Genitourinary Male genitourinary: normal - Integumentary Integumentary: clear, warm, dry - Musculoskeletal Musculoskeletal: 1, strength equal bilaterally - Neurologic Neurologic: moves all extremities - Psychiatric Psychiatric: memory intact, appropriate mood/affect, intact judgment & insight - Labs CBC & Chem 7: 10/18/19 03:48 10/18/19 03:48 Labs: Abnormal lab results 10/19/19 Range/Units 19:59 POC Glucose 173 H (70-105)
--- NOTE | 2019-10-20 18:20 | Discharge Summary ---
Providers - Providers Date of Admission: 10/19/19 13:49 Date of discharge: 10/21/19 Attending physician: HUI BOCANEGRA 10/17/19 23:31 Consult to Physician [CONS] Routine Comment: Consulting Provider: YOSEF FARIA Physician Instructions: Reason For Exam: cp Primary care physician: FEEDER TENDER Hospitalization Condition: Stable Hospital course: Chronic stable angina Hx of multivessel CAD with 3 vessel CABG (pt follows with [place]) [facility] 08/2019 at [place] 1. Mild nonobstructive left main disease, feeding and LAD system with a patent stent. 2. Patent left internal mammary artery graft to the diagonal branch of the LAD. 3. Occluded saphenous vein grafts 2 to the circumflex and right coronary arteries. 4. In-stent restenosis of the circumflex was treated with successful balloon angioplasty. No additional stents were deployed. 5. The right coronary artery was chronically, totally occluded and recommended for medical therapy. 6. Left ventricle ejection fraction 45-50%. Hypertension Diabetes Noncompliant with medications Recommend: Medical therapy for coronary artery disease small vessel disease and chronic stable angina pectoris including DAPT, beta blockers,statin therapy, nitrates and Ranexa 500 mg twice a day. Stable cardiac bautista. 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 Disposition: TO HOME OR SELFCARE Core Measure Documentation - Palliative Care Palliative Care/ Comfort Measures: Not Applicable - Core Measures Any of the following diagnoses?: none Exam - Constitutional Vitals: Temp Pulse Resp BP Pulse Ox 98.1 F 61 0 L 140/54 94 10/20/19 08:03 10/20/19 08:03 10/20/19 10:00 10/20/19 08:03 10/20/19 09:11 General appearance: Present: no acute distress, well-nourished - EENT Eyes: Present: PERRL ENT: hearing intact, clear oral mucosa - Neck Neck: Present: supple, normal ROM - Respiratory Respiratory effort: normal Respiratory: bilateral: CTA - Cardiovascular Heart rate: 78 Rhythm: regular Heart Sounds: Present: S1 & S2. Absent: rub, click - Extremities Extremities: pulses symmetrical, No edema Peripheral Pulses: within normal limits - Abdominal General gastrointestinal: Present: soft, non-tender, non-distended, normal bowel sounds Male genitourinary: Present: normal - Integumentary Integumentary: Present: clear, warm, dry - Musculoskeletal Musculoskeletal: gait normal, strength equal bilaterally - Psychiatric Psychiatric: appropriate mood/affect, intact judgment & insight - Neurologic Neurologic: CNII-XII intact, moves all extremities Plan Activity: no restrictions Diet: low fat, low cholesterol, low salt Follow up with: PRIMARY CARE, [Primary Care Provider] - 3-5 Days
[2019-10-20] MEDS: ASPIRIN EC 325 MG TAB PO SCH (20:41)
[2019-10-20] MEDS: HEPARIN 5,000 UNIT/1 ML VIAL SUB-Q SCH ×3 (20:41→21:44)
[2019-10-20] MEDS: LISINOPRIL 5 MG TAB PO SCH (20:42)
[2019-10-20] MEDS: METOPROLOL SUCCINATE XL 25 MG TAB PO SCH (20:42)
[2019-10-20] MEDS: CLOPIDOGREL 75 MG TAB PO SCH (20:42)
[2019-10-20] MEDS: RANOLAZINE ER 500 MG TAB 12HR PO SCH ×3 (20:42→21:45)
[2019-10-21] MEDS: hydrALAZINE 20 MG/1 ML INJ IV PRN ×2 (00:09→08:39)
[2019-10-21] MEDS: MORPHINE 2 MG/1 ML INJ IV PRN ×3 (02:18→17:04)
--- NOTE | 2019-10-21 07:27 | Discharge Summary ---
Providers - Providers Date of Admission: 10/19/19 13:49 Date of discharge: 10/21/19 Attending physician: JARED RM 10/17/19 23:31 Consult to Physician [CONS] Routine Comment: Consulting Provider: YOSEF FARIA Physician Instructions: Reason For Exam: cp Primary care physician: TUBING SUPERVISOR Hospitalization Condition: Stable Hospital course: Patient is a 59 yo man with a history of CAD s/p CABG, hypertension and type 2 DM who presents with chest pains. He had a prolong stay in the hospital due to recurrent chest pains. Ranexa was added. Cardiology was considering [facility] but he wanted to obtain old records from [place], which showed the following per Cardiology: "The patient's cardiac catheterization report from a month ago at [place] reports as follows: 1. Mild nonobstructive left main disease, feeding and LAD system with a patent stent. 2. Patent left internal mammary artery graft to the diagonal branch of the LAD. 3. Occluded saphenous vein grafts 2 to the circumflex and right coronary arteries. 4. In-stent restenosis of the circumflex was treated with successful balloon angioplasty. No additional stents were deployed. 5. The right coronary artery was chronically, totally occluded and recommended for medical therapy. 6. Left ventricle ejection fraction 45-50%. Based on the above detailed anatomy, we'll recommend medical therapy for small vessel disease and chronic stable angina pectoris. We'll add long-acting nitrates and Ranexa to his current regimen. Aggressive risk factor modification is also recommended. The patient's doctors at [place] recommended a PCS K9 inhibitor for cholesterol management." Discharge Diagnoses: Left sided Chest pains, due to Angina Diabetes mellitus type 2 Malignant Hypertension Bradycardia, suspected SHAKILA Hypokalemia Disposition: [facility]-01 TO HOME OR SELFCARE Time spent for discharge: 35 minutes Core Measure Documentation - Palliative Care Palliative Care/ Comfort Measures: Not Applicable - Core Measures Any of the following diagnoses?: none - VTE Discharge Requirements Deep Vein Thrombosis/Pulmonary Embolism Present on Admission: No Has pt received <5 days of overlap therapy or INR<2.0: No Anticoagulant overlap therapy prescribed at discharge: No Contraindication No Overlap Therapy order at DC: Not Indicated Exam - Physical Exam Narrative exam: Gen: WDWN, NAD, Awake, Alert, Orientated x 3 HEENT: NCAT, EOMI, PERRL, OP Clear Neck: supple, no adenopathy, no thyromegaly, no JVD CVS/Heart: RRR, normal S1S2, pulses present bilaterally Chest/Lungs: CTA B, Symmetrical chest expansion, good air entry bilaterally, reproducible substernal/LLL chest wall tenderness GI/Abdomen: soft, NTND, good bowel sounds, no guarding or rebound /Bladder: no suprapubic tenderness, no CVA or paraspinal tenderness Extermity/Skin: no c/c/e, no obvious rash MSK: FROM x 4 Neuro: CN 2-12 grossly intact, no new focal deficits Psych: calm - Constitutional Vitals: Temp Pulse Resp BP Pulse Ox 98.0 F 82 18 157/49 93 10/21/19 04:04 10/21/19 06:00 10/21/19 04:04 10/21/19 04:04 10/21/19 04:04 Plan Activity: other (no strenous activity unless cleared by Your Jim Knitting Inspector) Diet: low salt, diabetic Special Instructions: record daily BP diary, record blood sugar diary (at least two times a day) Additional Instructions: Make an appointment for Sleep study test. I suspect you have Sleep apnea. 30 day Cardiac event monitor especially while sleep, get from Cardiology Follow up with: Jim, Knitting Inspector [Other] - 3 Days PRIMARY CARE, [Primary Care Provider] - 7 Days BRIDGET ACOSTA MD [Staff Physician] - 7 Days Prescriptions: AtorvaSTATin [Lipitor] 80 mg PO QHS #30 tablet Aspirin EC [Ecotrin] 325 mg PO QDAY #100 tablet ISOSORBIDE MONOnitrate [Imdur ER] 60 mg PO QDAY #30 Metformin HCl [metFORMIN ER Gastric] 1,000 mg PO BID #60 Metoprolol Xl [Metoprolol SUCCINATE ER TAB] 25 mg PO QDAY #30 tablet Nitroglycerin [Nitrostat] 0.4 mg SL .Q5MIN PRN #25 tablet PRN Reason: Chest Pain Clopidogrel [Plavix] 75 mg PO QDAY 30 Days #30 tablet Ranolazine ER [Ranexa ER] 500 mg PO BID #60 tablet lisinopriL [Zestril TAB] 5 mg PO QDAY #30 tablet
[2019-10-21 11:22] VITALS: BP 147/49
[2019-10-21] MEDS: HEPARIN 5,000 UNIT/1 ML VIAL SUB-Q SCH (11:23)
[2019-10-21] MEDS: ASPIRIN EC 325 MG TAB PO SCH (11:23)
[2019-10-21] MEDS: LISINOPRIL 5 MG TAB PO SCH (11:23)
[2019-10-21] MEDS: CLOPIDOGREL 75 MG TAB PO SCH (11:23)
[2019-10-21] MEDS: RANOLAZINE ER 500 MG TAB 12HR PO SCH (11:23)
[2019-10-21] MEDS: METOPROLOL SUCCINATE XL 25 MG TAB PO SCH (11:23)
--- NOTE | 2019-10-21 17:51 | Progress Note ---
Assessment and Plan Assessment and plan: Patient is a 59 yo man with a history of CAD s/p CABG, hypertension and type 2 DM who presents with chest pains Left sided Chest pains, recurrent, treat with IV morphine this afternoon: Cardiology following, they waiting to get old records to proceed Check cardiac enzymes, consulted cardiology Patient had a recent stress test done 1 year ago Start aspirin,plavix, IV morphine, outpatient cardiac medications Diabetes mellitus type 2 Check fingersticks and start insulin sliding scale Malignant Hypertension add IV hydralazine, uncontrolled table continue outpatient medications DVT prophylaxis added sq heparin Bradycardia, 2 second pause during sleep, suspect SHAKILA Hypokalemia replete and recheck Disposition: continue inpatient care, still having chest pains, once cp free then discharge, Cardiology has added Ranexa. per Cardiology: "The patient's cardiac catheterization report from a month ago at [place] reports as follows: 1. Mild nonobstructive left main disease, feeding and LAD system with a patent stent. 2. Patent left internal mammary artery graft to the diagonal branch of the LAD. 3. Occluded saphenous vein grafts 2 to the circumflex and right coronary arteries. 4. In-stent restenosis of the circumflex was treated with successful balloon angioplasty. No additional stents were deployed. 5. The right coronary artery was chronically, totally occluded and recommended for medical therapy. 6. Left ventricle ejection fraction 45-50%. Based on the above detailed anatomy, we'll recommend medical therapy for small vessel disease and chronic stable angina pectoris. We'll add long-acting nitrates and Ranexa to his current regimen. Aggressive risk factor modification is also recommended. The patient's doctors at [place] recommended a PCS K9 inhibitor for cholesterol management." History Interval history: Patient was seen and examined. Follow-up on current diagnosis of chest pains. Overnight uneventful as no events directly reported to me. Patient denies any shortness breath, nausea/vomiting or severe headaches. Imaging, nursing note, chart, labs and old chart reviewed. Discussed with patient. Hospitalist Physical - Physical exam Narrative exam: Gen: WDWN, NAD, Awake, Alert, Orientated x 3 HEENT: NCAT, EOMI, PERRL, OP Clear Neck: supple, no adenopathy, no thyromegaly, no JVD CVS/Heart: RRR, normal S1S2, pulses present bilaterally Chest/Lungs: CTA B, Symmetrical chest expansion, good air entry bilaterally, reproducible substernal/LLL chest wall tenderness GI/Abdomen: soft, NTND, good bowel sounds, no guarding or rebound /Bladder: no suprapubic tenderness, no CVA or paraspinal tenderness Extermity/Skin: no c/c/e, no obvious rash MSK: FROM x 4 Neuro: CN 2-12 grossly intact, no new focal deficits Psych: calm - Constitutional Vitals: Temp Pulse Resp BP Pulse Ox 98.2 F 60 18 147/49 95 10/21/19 08:26 10/21/19 11:23 10/21/19 08:26 10/21/19 11:23 10/21/19 10:25 General appearance: Present: no acute distress, well-nourished Results - Labs CBC & Chem 7: 10/18/19 03:48 10/18/19 03:48 Labs: Laboratory Last Values WBC 4.8 K/mm3 (4.5-11.0) 10/18/19 03:48 RBC 4.62 M/mm3 (3.65-5.03) 10/18/19 03:48 Hgb 13.4 gm/dl (11.8-15.2) 10/18/19 03:48 Hct 39.4 % (35.5-45.6) 10/18/19 03:48 MCV 85 fl (84-94) 10/18/19 03:48 MCH 29 pg (28-32) 10/18/19 03:48 MCHC 34 % (32-34) 10/18/19 03:48 RDW 14.3 % (13.2-15.2) 10/18/19 03:48 Plt Count 158 K/mm3 (140-440) 10/18/19 03:48 Lymph % (Auto) 47.6 % (13.4-35.0) H 10/18/19 03:48 Izard % (Auto) 6.6 % (0.0-7.3) 10/18/19 03:48 Eos % (Auto) 1.5 % (0.0-4.3) 10/18/19 03:48 Baso % (Auto) 0.5 % (0.0-1.8) 10/18/19 03:48 Lymph # 2.3 K/mm3 (1.2-5.4) 10/18/19 03:48 Izard # 0.3 K/mm3 (0.0-0.8) 10/18/19 03:48 Eos # 0.1 K/mm3 (0.0-0.4) 10/18/19 03:48 Baso # 0.0 K/mm3 (0.0-0.1) 10/18/19 03:48 Seg Neutrophils % 43.8 % (40.0-70.0) 10/18/19 03:48 Seg Neutrophils # 2.1 K/mm3 (1.8-7.7) 10/18/19 03:48 PT 13.8 Sec. (12.2-14.9) 10/17/19 13:58 INR 1.05 (0.87-1.13) 10/17/19 13:58 APTT 30.2 Sec. (24.2-36.6) 10/17/19 13:58 Sodium 142 mmol/L (137-145) 10/18/19 03:48 Potassium 3.5 mmol/L (3.6-5.0) L 10/18/19 03:48 Chloride 105.6 mmol/L (98-107) 10/18/19 03:48 Carbon Dioxide 24 mmol/L (22-30) 10/18/19 03:48 Anion Gap 16 mmol/L 10/18/19 03:48 BUN 12 mg/dL (9-20) 10/18/19 03:48 Creatinine 0.8 mg/dL (0.8-1.5) 10/18/19 03:48 Estimated GFR > 60 ml/min 10/18/19 03:48 BUN/Creatinine Ratio 15 % 10/18/19 03:48 Glucose 197 mg/dL (75-100) H 10/18/19 03:48 POC Glucose 173 (70-105) H 10/19/19 19:59 Calcium 8.4 mg/dL (8.4-10.2) 10/18/19 03:48 Total Bilirubin 0.40 mg/dL (0.1-1.2) 10/17/19 13:58 AST 18 units/L (5-40) 10/17/19 13:58 ALT 20 units/L (7-56) 10/17/19 13:58 Alkaline Phosphatase 117 units/L (35-129) 10/17/19 13:58 Total Creatine Kinase 262 units/L (55-170) H 10/18/19 03:48 CK-MB (CK-2) 5.2 ng/mL (0.0-4.0) H 10/18/19 03:48 CK-MB (CK-2) Rel Index 1.9 (0-4) 10/18/19 03:48 Troponin T 0.020 ng/mL (0.00-0.029) 10/18/19 03:48 Total Protein 7.1 g/dL (6.3-8.2) 10/17/19 13:58 Albumin 3.8 g/dL (3.9-5) L 10/17/19 13:58 Albumin/Globulin Ratio 1.2 % 10/17/19 13:58 Active Medications - Current Medications Current Medications: Generic Name Dose Route Start Last Admin Trade Name Freq PRN Reason Stop Dose Admin Acetaminophen 650 mg 10/17/19 23:31 Tylenol PO Q4H PRN Pain MILD(1-3)/Fever >100.5/DAVIDSON Aspirin 325 mg 10/18/19 10:00 10/21/19 11:23 Ecotrin PO 325 mg QDAY REYNALDO Administration Atorvastatin Calcium 80 mg 10/18/19 22:00 10/20/19 21:44 Lipitor PO Not Given QHS REYNALDO Clopidogrel Bisulfate 75 mg 10/18/19 10:00 10/21/19 11:23 Plavix PO 75 mg QDAY REYNALDO Administration Heparin Sodium (Porcine) 5,000 unit 10/19/19 22:00 10/21/19 11:23 Heparin SUB-Q 5,000 unit Q12HR REYNALDO Administration Hydralazine HCl 5 mg 10/17/19 23:38 10/21/19 08:39 Apresoline IV 5 mg Q6H PRN Administration Hypertension Isosorbide Mononitrate 30 mg 10/19/19 12:00 10/21/19 11:22 Imdur PO 30 mg QDAY REYNALDO Administration Lisinopril 5 mg 10/18/19 10:00 10/21/19 11:23 Zestril PO 5 mg QDAY REYNALDO Administration Metoprolol Succinate 25 mg 10/18/19 10:00 10/21/19 11:23 Metoprolol Xl PO 25 mg QDAY REYNALDO Administration Morphine Sulfate 2 mg 10/17/19 22:40 10/21/19 17:04 Morphine IV 2 mg Q4H PRN Administration Pain, Moderate (4-6) Nitroglycerin 0.4 mg 10/17/19 19:30 10/21/19 08:39 Nitrostat SL 0.4 mg .Q5MIN PRN Administration Chest Pain Ondansetron HCl 4 mg 10/17/19 23:31 Zofran IV Q8H PRN Nausea And Vomiting Ranolazine 500 mg 10/19/19 12:00 10/21/19 11:23 Ranexa Er PO 500 mg BID REYNALDO Administration Sodium Chloride 10 ml 10/18/19 10:00 10/21/19 11:24 Sodium Chloride Flush Syringe 10 Ml IV 10 ml BID REYNALDO Administration Sodium Chloride 10 ml 10/17/19 23:31 10/19/19 22:09 Sodium Chloride Flush Syringe 10 Ml IV 10 ml PRN PRN Administration LINE FLUSH
== END 2019-10-21 19:56 | disposition home or self-care (01) | DRG 303 ==
LOC: ED 13:22 → 4A 19:38 → OBSVTOIN 10-19 13:49
PROVIDERS: ADMIT Internal Medicine; ATTEND Internal Medicine
DX: I25.118 Atherosclerotic heart disease of native coronary artery with other forms of angina pectoris (principal); I10 Essential (primary) hypertension; E11.9 Type 2 diabetes mellitus without complications; I51.7 Cardiomegaly; E87.6 Hypokalemia; R00.1 Bradycardia, unspecified; Z95.1 Presence of aortocoronary bypass graft; Z79.899 Other long term (current) drug therapy; Z82.49 Family history of ischemic heart disease and other diseases of the circulatory system; Z91.14 Patient's other noncompliance with medication regimen
CPT/HCPCS: 36415; 71045; 71046; 80048; 80053; 82550; 82553; 82962; 84484; 85025; 85610; 85730; 93005; 93010; 96374; G0378; A9270-GY; J0360; J1644; J2270